=== PATIENT | female | born 1965 | race Caucasian/White ===

== ENCOUNTER 2018-01-01 18:41 | Emergency (ER) | payer OTHER ==
[~2018-01-01] VITALS: Ht 175.3 cm; Wt 86.2 kg
--- OUTSIDE RECORDS SUMMARY | ~2018-01-01 | XMS | Encounter Summary ---
Demographics + + + | Address | [address] | | | [place] [address] | + + + | Home Phone | | + + + | Preferred Language | Unknown | + + + | Marital Status | | + + + | Anglican Affiliation | Unknown | + + + | Race | Unknown | + + + | Ethnic Group | Unknown | + + + Author + + + | Author | [facility] | | | and [place]za[place] | + + + | Organization | [facility] | | | and [place]za[place] | + + + | Address | Unknown | + + + | Phone | Unavailable | + + + Support + + + + + | Name | Relationship | Address | Phone | + + + + + | Mathieu Almanza | ECON | [address] | | | | | [place] [address] | | + + + + + | Brittanie Almanza | ECON | Unknown | | + + + + + Care Team Providers + +------+ + | Care Enterprise Application Developer Name | Role | Phone | + +------+ + | Consuelo Lepe | PCP | | + +------+ + Reason for Referral Diagnostic/Screening (Routine) +--------+--------+ + + + + | Status | Reason | Specialty | Diagnoses / | Referred By | Referred To | | | | | Procedures | Contact | Contact | +--------+--------+ + + + + | Closed | | Radiology | Diagnoses | Roberth, | | | | | | Chronic | Consuelo | | | | | | sinusitis, | [address] [address] | | | | | | unspecified | [address] | | | | | | location | [place], | | | | | | Procedures | [place] | | | | | [place] | [address] | | | | | | Contrast | Phone: | | | | | | | [phone] | | | | | | | Fax: | | | | | | | [phone] | | +--------+--------+ + + + + Encounter Details +--------+ + + + + | Date | Type | Department | Care Team | Description | +--------+ + + + + | 10/16/ | Ancillary | [facility] | Consuelo Lepe | Chronic sinusitis, | | 2018 | Orders | [facility] XRAY 900 | [address] | unspecified location | | | | [address] | [facility], [place] | | | | | [place], [place] | [address] | | | | | [address] | [phone] | | | | | [phone] | | | +--------+ + + + + Social History + +-------+ +--------+------+ | Tobacco Use | Types | Packs/Day | Years | Date | | | | | Used | | + +-------+ +--------+------+ | Never Assessed | | | | | + +-------+ +--------+------+ + + + | Sex Assigned at | Date Recorded | | | | + + + | Not on file | | + + + as of this encounter Plan of Treatment Not on fileas of this encounter Results CT Sinus WO Contrast (10/22/2017 1006) + + + | Impressions | Performed At | + + + | IMPRESSION: Mild paranasal sinus mucosal thickening as detailed | [facility] | | above. Dictated by: Jonny Terry | | + + + + + + | Narrative | Performed At | + + + | EXAMINATION: CT SINUS WO CONTRAST HISTORY: chronic sinusitis | [facility] | | COMPARISON STUDY: No comparison. TECHNIQUE: 2.5 mm axial | | | slices were acquired through the sinuses | | | without contrast. Multiplanar reconstruction was performed. | | | DOSE REPORT: CTDIvol: 23.3 mGy. DLP: 283 mGy-cm. Automated | | | exposure control was utilized. FINDINGS: Olfactory fossa: Keros | | | II Frontal ethmoid sinus: The frontal recess bilateral | | | demonstrate partial opacification on the right related to mucosal | | | thickening.. The frontal sinuses demonstrate minimal mucosal | | | thickening at the base of the right frontal sinus. The ethmoid | | | sinuses are clear. Maxillary ethmoid sinus: The osteal meatal | | | complexes are patent. The maxillary sinuses demonstrate mild mucosal | | | thickening at the base of the left maxillary. The bony septum is | | | midline. The turbinates appear within normal configuration. | | | Sphenoid ethmoid sinus: The sphenoidal ethmoidal ostia demonstrate no | | | mucosal thickening in the region of the ostia.. The sphenoid sinuses | | | are clear. Mastoid air cells visualized are clear. Visualized | | | orbits are unremarkable. Visualized brain parenchyma is | | | unremarkable. Temporomandibular joints are unremarkable. Visualized | | | parotid glands are unremarkable. | | + + + + + | Procedure Note | + + | Migue, Rad Results In - 10/22/2017 1137 PDT EXAMINATION:CT SINUS WO | | CONTRASTHISTORY:chronic sinusitisCOMPARISON STUDY:No comparison.TECHNIQUE:2.5 mm axial | | slices were acquired through the sinuses without contrast. Multiplanar reconstruction | | was performed.DOSE REPORT:CTDIvol: 23.3 mGy. DLP: 283 mGy-cm. Automated exposure | | control was utilized.FINDINGS:Olfactory fossa: Keros IIFrontal ethmoid sinus:The frontal | | recess bilateral demonstrate partial opacification on the right related to mucosal | | thickening..The frontal sinuses demonstrate minimal mucosal thickening at the base of | | the right frontal sinus.The ethmoid sinuses are clear.Maxillary ethmoid sinus:The osteal | | meatal complexes are patent.The maxillary sinuses demonstrate mild mucosal thickening | | at the base of the left maxillary.The bony septum is midline.The turbinates appear | | within normal configuration.Sphenoid ethmoid sinus:The sphenoidal ethmoidal ostia | | demonstrate no mucosal thickening in the region of the ostia..The sphenoid sinuses are | | clear.Mastoid air cells visualized are clear.Visualized orbits are | | unremarkable.Visualized brain parenchyma is unremarkable.Temporomandibular joints are | | unremarkable.Visualized parotid glands are unremarkable.IMPRESSION: IMPRESSION:Mild | | paranasal sinus mucosal thickening as detailed above.Dictated by: Jonny | | [place] | | | |Frontal ethmoid sinus: | |The frontal recess bilateral demonstrate partial opacification on the right related to muco ricky thickening.. | |The frontal sinuses demonstrate minimal mucosal thickening at the base of the right frontal sinus. | |The ethmoid sinuses are clear. | | | |Maxillary ethmoid sinus: | |The osteal meatal complexes are patent. | |The maxillary sinuses demonstrate mild mucosal thickening at the base of the left maxillary . | | | |The bony septum is midline. | |The turbinates appear within normal configuration. | | | |Sphenoid ethmoid sinus: | |The sphenoidal ethmoidal ostia demonstrate no mucosal thickening in the region of the ostia .. | |The sphenoid sinuses are clear. | | | | | |Mastoid air cells visualized are clear. | |Visualized orbits are unremarkable. | |Visualized brain parenchyma is unremarkable. | |Temporomandibular joints are unremarkable. | |Visualized parotid glands are unremarkable. | | | |IMPRESSION: | |IMPRESSION: | |Mild paranasal sinus mucosal thickening as detailed above. | | | |Dictated by: Jonny Terry | | | | | + + + +---------+ + + | Performing | Address | City/State/Zipcode | Phone Number | | Organization | | | | + +---------+ + + | [facility] | | | | + +---------+ + + in this encounter Visit Diagnoses + + | Diagnosis | + + | Chronic sinusitis, unspecified location | + +"
--- OUTSIDE RECORDS SUMMARY | ~2018-01-01 | XMS | Encounter Summary ---
Demographics + + + | Address | [address] | | | [place] [address] | + + + | Home Phone | | + + + | Preferred Language | Unknown | + + + | Marital Status | | + + + | Druze Affiliation | Unknown | + + + | Race | Unknown | + + + | Ethnic Group | Unknown | + + + Author + + + | Author | [facility] | | | and [place] | + + + | Organization | [facility] | | | and [place] | + + + | Address | Unknown | + + + | Phone | Unavailable | + + + Support + + + + + | Name | Relationship | Address | Phone | + + + + + | Mathieu Almanza | ECON | [address] | | | | | [place] [address] | | + + + + + | Brittanie Almanza | ECON | Unknown | | + + + + + Care Team Providers + +------+ + | Care Marketing Assistant Name | Role | Phone | + [...] | | | [place] | [address] | | | | | | Contrast | Phone: | | | | | | | [phone] | | | | | | | Fax: | | | | | | | [phone] | | +--------+--------+ + + + + Encounter Details +--------+ + + + + | Date | Type | Department | Care Team | Description | +--------+ + + + + | 10/16/ | Ancillary | [facility] | Consuelo Lepe | Chronic sinusitis, | | 2018 | Orders | [facility] XRAY [address] | [address] | unspecified location | | | | [address] | [facility], [place] | | | | | [place], [place] | [address] | | | | | [address] | [phone] | | | | | [phone] | | | +--------+ + + + [...]
--- OUTSIDE RECORDS SUMMARY | ~2018-01-01 | XMS | Encounter Summary ---
Demographics + + + | Address | [address] | | | [place] [address] | + + + | Home Phone | | + + + | Preferred Language | Unknown | + + + | Marital Status | | + + + | Yazidism Affiliation | Unknown | + + + | Race | Unknown | + + + | Ethnic Group | Unknown | + + + Author + + + | Author | [facility] | | | and [place]za[place] | + + + | Organization | [facility] | | | and [place] | + + + | Address | Unknown | + + + | Phone | Unavailable | + + + Support + + + + + | Name | Relationship | Address | Phone | + + + + + | Mathieu Almanza | ECON | [address] | | | | | [place] [address] | | + + + + + | Brittanie Almanza | ECON | Unknown | | + + + + + Care Team Providers + +------+ + | Care Travelift Operator Name | Role | Phone | + +------+ + | Consuelo Lepe | PCP | | + +------+ + Encounter Details +--------+ + + + + | Date | Type | Department | Care Team | Description | +--------+ + + + + | 10/22/ | Ancillary | [facility] | Consuelo Lepe | 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[facility] XRAY [address] | [address] | tunnel syndrome | | | | [address] | [facility] [place] | | | | | [place] | [address] | | | | | [address] | [phone] | | | | | [phone] | | | +--------+ + + + [...] Not on fileas of this encounter Results XR Hand Left 3 + Vw (10/22/2017 1012) + + + | Impressions | Performed At | + + + | IMPRESSION: 1. No acute finding. 2. No distinct joint degenerative | [facility] | | changes evident. Dictated by: Jonny Terry Electronically | | | Signed by: Jonny Terry on 10/22/2017 11:00 AM | | + + + + + + | Narrative | Performed At | + + + | EXAMINATION: XR HAND LEFT 3 + VW; XR HAND RIGHT 3 + VW HISTORY: | [facility] | | Bilateral carpal tunnel syndrome COMPARISON STUDY: None | | | FINDINGS: Images in multiple views showed no significant soft tissue | | | or bony abnormality. If concern for acute fracture remains clinically | | | follow-up images in 10 to 14 days recommended. The joint spaces are | | | maintained. No ulnar variance. No acute bone finding | | | identified. No abnormal soft tissue calcifications.. | | + + + + + | Procedure Note | + + | Migue, Rad Results In - 10/22/2017 1103 PDT EXAMINATION:XR HAND LEFT 3 + VW; XR HAND | | RIGHT 3 + VWHISTORY:Bilateral carpal tunnel syndromeCOMPARISON STUDY:NoneFINDINGS:Images | | in multiple views showed no significant soft tissue or bony abnormality.If concern for | | acute fracture remains clinically follow-up images in 10 to 14 days recommended. The | | joint spaces are maintained. No ulnar variance. No acute bone finding identified. No | | abnormal soft tissue calcifications..IMPRESSION: IMPRESSION:1. No acute finding.2. No | | distinct joint degenerative changes evident.Dictated by: Jonny TerryElectronically | | Signed by: Jonny Terry on 10/22/2017 11:00 AM | | | |FINDINGS: | |Images in multiple views showed no significant soft tissue or bony abnormality. | |If concern for acute fracture remains clinically follow-up images in 10 to 14 days recommen ded. The joint spaces are maintained. No ulnar variance. No acute bone finding identified. No abnormal soft tissue calcifications.. | | | |IMPRESSION: | |IMPRESSION: | |1. No acute finding. | |2. No distinct joint degenerative changes evident. | | | |Dictated by: Jonny Terry | | | | | + + + +---------+ + + | Performing | Address | City/State/Zipcode | Phone Number | | Organization | | | | + +---------+ + + | [facility] | | | | + +---------+ + + XR Hand Right 3 + Vw (10/22/2017 1012) + + + | Impressions | Performed At | + + + | IMPRESSION: 1. No acute finding. 2. No distinct joint degenerative | [facility] | | changes evident. Dictated by: Jonny Terry Electronically | | | Signed by: Jonny Terry on 10/22/2017 11:00 AM | | + + + + + + | Narrative | Performed At | + + + | EXAMINATION: XR HAND LEFT 3 + VW; XR HAND RIGHT 3 + VW HISTORY: | [facility] | | Bilateral carpal tunnel syndrome COMPARISON STUDY: None | | | FINDINGS: Images in multiple views showed no significant soft tissue | | | or bony abnormality. If concern for acute fracture remains clinically | | | follow-up images in 10 to 14 days recommended. The joint spaces are | | | maintained. No ulnar variance. No acute bone finding | | | identified. No abnormal soft tissue calcifications.. | | + + + + + | Procedure Note | + + | Migue, Rad Results In - 10/22/2017 1103 PDT EXAMINATION:XR HAND LEFT 3 + VW; XR HAND | | RIGHT 3 + VWHISTORY:Bilateral carpal tunnel syndromeCOMPARISON STUDY:NoneFINDINGS:Images | | in multiple views showed no significant soft tissue or bony abnormality.If concern for | | acute fracture remains clinically follow-up images in 10 to 14 days recommended. The | | joint spaces are maintained. No ulnar variance. No acute bone finding identified. No | | abnormal soft tissue calcifications..IMPRESSION: IMPRESSION:1. No acute finding.2. No | | distinct joint degenerative changes evident.Dictated by: Jonny TerryElectronically | | Signed by: Jonny Terry on 10/22/2017 11:00 AM | | | |FINDINGS: | |Images in multiple views showed no significant soft tissue or bony abnormality. | |If concern for acute fracture remains clinically follow-up images in 10 to 14 days recommen ded. The joint spaces are maintained. No ulnar variance. No acute bone finding identified. No abnormal soft tissue calcifications.. | | | |IMPRESSION: | |IMPRESSION: | |1. No acute finding. | |2. No distinct joint degenerative changes evident. | | | |Dictated by: Jonny Terry | | | | | + + + +---------+ + + | Performing | Address | City/State/Zipcode | Phone Number | | Organization | | | | + +---------+ + + | [facility] | | | | + +---------+ + + in this encounter Visit Diagnoses + + | Diagnosis | + + | Bilateral carpal tunnel syndrome | + + | Carpal tunnel syndrome | + +"
--- OUTSIDE RECORDS SUMMARY | ~2018-01-01 | XMS | Encounter Summary ---
Demographics + + + | Address | [address] | | | [place] [address] | + + + | Home Phone | | + + + | Preferred Language | Unknown | + + + | Marital Status | | + + + | Buddhist Affiliation | Unknown | + + + | Race | Unknown | + + + | Ethnic Group | Unknown | + + + Author + + + | Author | [facility] | | | and Rezaana | + + + | Organization | [facility] | | | and Rezaana | + + + | Address | Unknown | + + + | Phone | Unavailable | + + + Support + + + + + | Name | Relationship | Address | Phone | + + + + + | Mathieu Almanza | ECON | [address] | | | | | [place] [address] | | + + + + + | Brittanie Amlanza | ECON | Unknown | | + + + + + Care Team Providers + +------+ + | Care Painter Ski Edge Name | Role | Phone | + +------+ + | Consuelo Lepe | PCP | | + +------+ + Reason for Visit +--------+ + | Reason | Comments | +--------+ + | Pain | | +--------+ + Encounter Details +--------+ + + + + | Date | Type | Department | Care Team | Description | +--------+ + + + + | 12/26/ | Emergency | [facility] | Zahira Bland, | Generalized pain | | 2018 | | [facility] | [facility] [address] | (Primary Dx) | | | | CENTER [address] | [place] | | | | | [place] | [address] | | | | | [address] | | | | | | [phone] | | | +--------+ + + + + Social History + + + +--------+------+ | Tobacco Use | Types | Packs/Day | Years | Date | | | | | Used | | + + + +--------+------+ | Current Every Day | Cigarettes | 0.5 | 40 | | | Smoker | | | | | + + + +--------+------+ + +---+---+---+ | Smokeless Tobacco: | | | | | Never Used | | | | + +---+---+---+ + + | Tobacco Cessation: Ready to Quit: No; Counseling Given: No | + + + + +---------+ + | Alcohol Use | Drinks/We | oz/Week | Comments | | | ek | | | + + +---------+ + | No | | | | + + +---------+ + + + + | Sex Assigned at | Date Recorded | | | | + + + | Not on file | | + + + as of this encounter Last Filed Vital Signs + + + + | Vital Sign | Reading | Time Taken | + + + + | Blood Pressure | 107/72 | 12/26/20171454 PDT | + + + + | Pulse | 94 | 12/26/20171454 PDT | + + + + | Temperature | 37 C (98.6 F) | 12/26/20171454 PDT | + + + + | Respiratory Rate | 22 | 12/26/20171454 PDT | + + + + | Oxygen Saturation | 98% | 12/26/20171454 PDT | + + + + | Inhaled Oxygen | - | - | | Concentration | | | + + + + | Weight | 81.6 kg (180 lb) | 12/26/20171454 PDT | + + + + | Height | 170.2 cm (5' 7") | 12/26/20171454 PDT | + + + + | Body Mass Index | 28.19 | 12/26/20171454 PDT | + + + + in this encounter Discharge Instructions The following attachments cannot be sent through Care Everywhere.Pain Response,Understand ing (Estonian)in this encounter Medications at Time of Discharge + + +--------+---------+ + + | Medication | Sig. | Disp. | Refills | Start | End Date | | | | | | Date | | + + +--------+---------+ + + | | Take 1 tablet by | | | | | | acetaminophen-codein | mouth every 4 hours | | | | | | e (TYLENOL #3) | as needed for Pain. | | | | | | 300-30 mg per tablet | | | | | | + + +--------+---------+ + + | dexamethasone | Take 2 mg by mouth | | | | | | (DECADRON) 2 MG | Daily. | | | | | | tablet | | | | | | + + +--------+---------+ + + | | Take 1 tablet by | | | | | | sulfamethoxazole-tri | mouth 2 times daily. | | | | | | methoprim (BACTRIM | | | | | | | DS) 800-160 mg per | | | | | | | tablet | | | | | | + + +--------+---------+ + + | ketorolac | Take 1 tablet by | 20 | 0 | 12/27/19 | | | (TORADOL) 10 MG | mouth every 6 hours | tablet | | 18 | 8 | | tablet | as needed for Pain | | | | | | | for up to 5 days. | | | | | + + +--------+---------+ + + as of this encounter Plan of Treatment Not on fileas of this encounter Procedures + +--------+ + + + | Procedure Name | Priori | Date/Time | Associated Diagnosis | Comments | | | ty | | | | + +--------+ + + + | DIFFERENTIAL, MANUAL | Routin | 12/26/2017 | | Results for this | | | e | 1630 PDT | | procedure are in the | | | | | | results section. | + +--------+ + + + | CBC WITH | STAT | 12/26/2017 | | Results for this | | DIFFERENTIAL | | 1630 PDT | | procedure are in the | | | | | | results section. | + +--------+ + + + | LACTIC ACID | STAT | 12/26/2017 | | Results for this | | | | 1630 PDT | | procedure are in the | | | | | | results section. | + +--------+ + + + | COMPREHENSIVE | STAT | 12/26/2017 | | Results for this | | METABOLIC PANEL | | 1630 PDT | | procedure are in the | | | | | | results section. | + +--------+ + + + | URINALYSIS WITH | STAT | 12/26/2017 | | Results for this | | MICROSCOPIC WITH | | 1542 PDT | | procedure are in the | | CULTURE IF INDICATED | | | | results section. | + +--------+ + + + in this encounter Results Differential, Manual (12/26/2017 1630) + + + + + | Component | Value | Ref Range | Performed At | + + + + + | % Seg Neutrophils | 51.0 | 42.0 - 76.0 % | [facility] | | | [facility] | + + + + + | % Lymphocytes | 31.0 | 20.0 - 40.0 % | [facility] | + + + + + | % Monocytes | 10.0 | 3.0 - 13.0 % | [facility] | + + + + + | % Eosinophils | 7.0 | 0.0 - 7.0 % | [facility] | | | | [facility] | + + + + + | % Basophils | 1.0 | 0.0 - 2.0 % | [facility] | | | | | [facility] | + + + + + | Absolute Seg | 4.74 | 2.50 - 8.50 K/uL | [facility] | | Neutrophils | | | [facility]OSPITAL | | | | | LAB[facility]ATORY | + + + + + | Absolute Lymphocytes | 2.88 | 1.00 - 3.80 K/uL | [facility] | | | | | [facility] | + + + + + | Absolute Monocytes | 0.93 (H) | 0.00 - 0.80 K/uL | [facility] | | | | | [facility] | + + + + + | Absolute Eosinophils | 0.65 | 0.00 - 0.70 K/uL | [facility] | | | | | [facility] | + + + + + | Absolute Basophils | 0.09 | 0.00 - 0.20 K/uL | [facility] | | | | | [facility] | + + + + + | Total Counted | 100 | | [facility] | [facility] | | | [facility] | + + + + + | RBC MORPHOLOGY | Normal | | [facility] | | | | | [facility] | + + + + + | WBC MORPHOLOGY | Normal | | [facility] | | | | | [facility] | + + + + + | Platelet Estimate | Adequate | Adequate | [facility] | [facility] | | | | | [facility] | + + + + + + + | Specimen | + + | Blood | + + + + + + + | Performing | Address | City/State/Zipcode | Phone Number | | Organization | | | | + + + + + | [facility] | [address] | [place] [address] | [phone] | | [facility] | | | | + + + + + Lactic Acid (12/26/2017 1630) + +-------+ + + | Component | Value | Ref Range | Performed At | + +-------+ + + | LACTATE | 0.9 | 0.4 - 2.1 mmol/L | [facility] | | | | | [facility] | + +-------+ + + + + | Specimen | + + | Blood | + + + + + + + | Performing | Address | City/State/Zipcode | Phone Number | | Organization | | | | + + + + + | [facility] | [address] | [place] [address] | [phone] | | [facility] | | | | + + + + + Comprehensive Metabolic Panel (12/26/2017 1630) + + + + + | Component | Value | Ref Range | Performed At | + + + + + | NA | 137 | 132 - 143 mmol/L | [facility] | | | | | [facility] | + + + + + | K | 4.0 | 3.3 - 4.9 mmol/L | [facility] | [facility] | | | [facility] | + + + + + | CL | 103 | 95 - 108 mmol/L | [facility] | [facility] | | | | | [facility] | + + + + + | CO2 | 30 | 23 - 34 mmol/L | [facility] | | | | | [facility] | + + + + + | ANION GAP | 4 (L) | 7 - 16 mmol/L | [facility] | | | | | [facility] | + + + + + | GLUCOSE | 94 | 70 - 110 mg/dL | [facility] | [facility] | | [facility] | + + + + + | BUN | 11 | 5 - 26 mg/dL | [facility] | [facility] | | | | | [facility] | + + + + + | Creatinine, | 0.96 | 0.60 - 1.30 mg/dL | [facility] | | Serum/Plasma | | | [facility] | | | | | LAB[facility]ATORY | + + + + + | eGFR if not | >60Comment: GLOMERULAR | >=60 mL/min/1.73m2 | [facility] | | BRUNEIAN | FILTRATION | | HOSPITAL | | | RATE,ESTIMATED mL/min | | LABORATORY | | | /1.85i3Smbp than 60 | | | | | Chronic kidney | | | | | disease,if found over a | | | | | 3-month period.Less than | | | | | 15 Kidney | | | | | failureFor | | | | | Americans,multiply the | | | | | calculated GFR by 1.21. | | | | | | | | + + + + + | CALCIUM | 8.7 | 8.3 - 10.0 mg/dL | [facility] | [facility] | | | | | [facility] | + + + + + | ALBUMIN | 3.3 | 3.0 - 4.5 g/dL | [facility] | [facility] | | | | | [facility] | + + + + + | Bilirubin Total | 0.2 | 0.0 - 1.2 mg/dL | [facility] | | [facility] | | | | | [facility] | + + + + + | Total protein | 6.7 | 6.6 - 8.5 g/dL | [facility] | | | | | [facility] | + + + + + | AST | 16 | 0 - 38 U/L | [facility] | [facility] | | | | | [facility] | + + + + + | ALT | 29 | 14 - 59 U/L | [facility] | | | | | [facility] | + + + + + | ALK PHOS | 43 (L) | 46 - 116 U/L | [facility] | | | | | [facility] | + + + + + | GLOBULIN | 3.4 | g/dL | [facility] | [facility] | | | | | [facility] | + + + + + | Albumin/Globulin | 1.0 | | [facility] | | ratio | | | [facility] | | | | | [facility] | + + + + + | BUN/CREA | 11.5 | 7.0 - 24.0 | [facility] | | | [facility] | | | | | [facility] | + + + + + + + | Specimen | + + | Blood | + + + + + + + | Performing | Address | City/State/Zipcode | Phone Number | | Organization | | | | + + + + + | [facility] | [address] | [place] [address] | [phone] | | [facility] | | | | + + + + + CBC with Differential (12/26/2017 1630) + + + + + | Component | Value | Ref Range | Performed At | + + + + + | WBC | 9.3 | 4.3 - 10.4 K/uL | [facility] | | | | | [facility] | + + + + + | RBC | 4.04 (L) | 4.12 - 5.30 M/uL | [facility] | | | | | [facility] | + + + + + | Hgb | 13.0 | 12.4 - 15.7 g/dL | [facility] | | | | | [facility] | + + + + + | Hct | 38.7 | 37.7 - 47.0 % | [facility] | | | | | [facility] | + + + + + | MCV | 95.8 | 82.0 - 97.0 fL | [facility] | | | | | [facility] | + + + + + | MCH | 32.2 | 27.1 - 32.3 pg | [facility] | | | | | [facility] | + + + + + | MCHC | 33.6 | 32.0 - 36.9 g/dL | [facility] | [facility] | + + + + + | RDW-CV | 12.4 | 0.0 - 17.0 % | [facility] | | | | | [facility] | + + + + + | Platelet Count | 241 | 150 - 450 K/uL | [facility] | [facility] | [facility] | + + + + + | MPV | 10.2 | 9.4 - 12.3 fL | [facility] | [facility] | | | | | [facility] | + + + + + | nRBC | 0 | 0 - 0 per 100 WBC's | [facility] | | | | | [facility] | + + + + + | NRBC ABS | 0.00 | 0.00 - 0.01 K/UL | [facility] | [facility] | | | | | [facility] | + + + + + + + | Specimen | + + | Blood | + + + + + + + | Performing | Address | City/State/Zipcode | Phone Number | | Organization | | | | + + + + + | [facility] | [address] | [place] [address] | [phone] | | [facility] | | | | + + + + + Urinalysis with Microscopic with Culture if Indicated (12/26/2017 1542) + + + + + | Component | Value | Ref Range | Performed At | + + + + + | COLOR | Yellow | Pale Yellow, Yellow | [facility] | | | | | [facility] | + + + + + | CLARITY | Clear | Clear | [facility] | [facility] | | | | | [facility] | + + + + + | PH UA | 8.0 (H) | 5.0 - 7.0 | [facility] | | | | | [facility] | + + + + + | Specific [place] | 1.010 | 1.003 - 1.030 | [facility] | | [facility] | | | | | [facility] | + + + + + | PROTEIN UA | Negative | Negative | [facility] | | | | | [facility] | + + + + + | BLOOD UA | Negative | Negative | [facility] | | | [facility] | [facility] | | | [facility] | + + + + + | GLUCOSE UA | Normal | Normal | [facility] | | | | [facility] | | | | | [facility] | + + + + + | KETONES UA | Negative | Negative | [facility] | [facility] | [facility] | | | [facility] | + + + + + | BILIRUBIN UA | Negative | Negative | [facility] | [facility] | | | | | [facility] | + + + + + | NITRITE UA | Negative | Negative | [facility] | [facility] | | | [facility] | + + + + + | LEUKOCYTES ESTERASE | 25 zahraa/uL (A) | Negative | [facility] | | U[facility] | | | [facility] | | | | | [facility] | + + + + + | UROBILINOGEN UA | Normal | 0-1.0 mg/dL | [facility] | | | | [facility] | | | | | [facility] | + + + + + | WBC UA | 0-2 | <=5 /HPF | [facility] | [facility] | [facility] | | | | | [facility] | + + + + + | RBC UA | None Seen | <=5 /HPF | [facility] | [facility] | | | | | [facility] | + + + + + | SQUAMOUS EPITHELIAL | Few (A) | None Seen /LPF | [facility] | | [facility] | | | | | [facility] | + + + + + | BACTERIA UA | None Seen | None Seen /HPF | [facility] | [facility] | [facility] | | | | | [facility] | + + + + + | URINE COMMENT | Urine Culture Not | | [facility] | | | Indicated | | [facility] | | | | | [facility] | + + + + + + + | Specimen | + + | Urine - Urine, Clean | | Catch | + + + + + + + | Performing | Address | City/State/Zipcode | Phone Number | | Organization | | | | + + + + + | [facility] | [address] | [place] [address] | [phone] | | [facility] | | | | + + + + + in this encounter Visit Diagnoses + + | Diagnosis | + + | Generalized pain - Primary | + + Administered Medications + +--------+ +-------+------+------+ | Medication Order | MAR | Action | Dose | Rate | Site | | | Action | Date | | | | + +--------+ +-------+------+------+ | ketorolac (TORADOL) injection | Given | 12/26/2017 | 30 mg | | | | 30 mg 30 mg, Intravenous, ONCE, | | 16:33 | | | | | Marybeth 12/26/17 at 1645, For 1 dose | | PDT | | | | + +--------+ +-------+------+------+ + +---+ | | | + +---+ | LORazepam (ATIVAN) 2 mg/mL | | | injection Starting Marybeth 12/26/17 at | | | 1746, For 1 dose, CHAYO FRASER | | | M: anahi override | | + +---+ | | | + +---+ + +-------+ +------+---+---+ | LORazepam (ATIVAN) injection 1 | Given | 12/26/2017 | 1 mg | | | | mg 1 mg, Intravenous, ONCE, Marybeth | | 17:50 | | | | | 12/26/17 at 1815, For 1 dose | | PDT | | | | + +-------+ +------+---+---+ +---+---+ | | | +---+---+ in this encounter
--- OUTSIDE RECORDS SUMMARY | ~2018-01-01 | XMS | Encounter Summary ---
Demographics + + + | Address | [address] | | | [place] [address] | + + + | Home Phone | | + + + | Preferred Language | Unknown | + + + | Marital Status | | + + + | Uatsdin Affiliation | Unknown | + + + | Race | Unknown | + + + | Ethnic Group | Unknown | + + + Author + + + | Author | [facility] | | | and Rezaana | + + + | Organization | [facility] | | | and [place]za[place] | + + + | Address | Unknown | + + + | Phone | Unavailable | + + + Support + + + + + | Name | Relationship | Address | Phone | + + + + + | Mathieu Almanza | ECON | [address] | | | | | [place] [address] | | + + + + + | Brittanie Almanza | ECON | Unknown | | + + + + + Care Team Providers + +------+ + | [facility] Pharm[facility] Technician Name | Role | Phone | + +------+ + | Consuelo Lepe | PCP | | + +------+ + Encounter Details +--------+ + + + + | Date | Type | Department | Care Team | Description | +--------+ + + + + | 12/30/ | Ancillary | [facility] | Consuelo Lepe | Generalized | | 2018 | Orders | [facility] [address] | [address] | abdominal pain | | | | [address] | [facility], [place] | | | | | [place] | [address] | | | | | [address] | [phone] | | | | | [phone] | | | +--------+ + + + [...] | | | + +---+---+---+ + + +---------+ + | Alcohol Use [...] on fileas of this encounter Results XR Abd Supine and Upright w 1 Vw Chest (12/30/2017 3473) + + + | Impressions | Performed At | + + + | IMPRESSION: No acute finding identified. Dictated by: Jonny Varner [facility] | | [place] | | | PM | | + + + + + + | Narrative | Performed At | + + + | EXAMINATION: XR ABDOMEN SUPINE AND UPRIGHT WITH 1 VW CHEST | [facility] | | HISTORY: Abdominal Pain COMPARISON STUDY: CT abdomen pelvis | | | 12/11/2015. FINDINGS: Chest: The lungs are clear. Heart size | | | is normal. No pleural effusion, or acute bone finding is | | | demonstrated. . Abdomen: The bowel gas pattern appears within | | | normal limits. No abnormal soft tissue calcifications are | | | seen. The visualized bony structures appear within normal limits. | | | Phleboliths project over the pelvic inlet. Suture material | | | projecting over the left pelvic inlet compatible with prior surgery. | | | | | + + + + + | Procedure Note | + + | Migue, Rad Results In - 12/30/2017 1415 PDT EXAMINATION:XR ABDOMEN SUPINE AND UPRIGHT | | WITH 1 VW CHESTHISTORY:Abdominal PainCOMPARISON STUDY:CT abdomen pelvis | | 12/11/2015.FINDINGS:Chest: The lungs are clear. Heart size is normal. No pleural | | effusion, or acute bone finding is demonstrated. .Abdomen: The bowel gas pattern appears | | within normal limits. No abnormal soft tissue calcifications are seen. The visualized | | bony structures appear within normal limits. Phleboliths project over the pelvic inlet. | | Suture material projecting over the left pelvic inlet compatible with prior | | surgery.IMPRESSION: IMPRESSION:No acute finding identified.Dictated by: Jonny | | [place] | |FINDINGS: | |Chest: The lungs are clear. Heart size is normal. No pleural effusion, or acute bone find ing is demonstrated. . | | | |Abdomen: The bowel gas pattern appears within normal limits. No abnormal soft tissue calci fications are seen. The visualized bony structures appear within normal limits. Phleboliths project over the pelvic inlet. Suture material projecting over the | |left pelvic inlet compatible with prior surgery. | | | |IMPRESSION: | |IMPRESSION: | |No acute finding identified. | | | |Dictated by: Jonny Terry | | | | | + + + +---------+ + + | Performing | Address | City/State/Zipcode | Phone Number | | Organization | | | | + +---------+ + + | [facility] | | | | + +---------+ + + in this encounter Visit Diagnoses + + | Diagnosis | + + | Generalized abdominal pain | + + | Abdominal pain, generalized | + +"
--- OUTSIDE RECORDS SUMMARY | ~2018-01-01 | XMS | Clinical Summary ---
Demographics + + + | Address | [address] | | | [place] [address] | + + + | Home Phone | | + + + | Preferred Language | Unknown | + + + | Marital Status | | + + + | Pentecostal Affiliation | Unknown | + + + | Race | Unknown | + + + | Ethnic Group | Unknown | + + + Author + + + | Author | [facility] | | | and [place] | + + + | Organization | [facility] | | | and [place]za[place] | + + + | Address | Unknown | + + + | Phone | Unavailable | + + + Support + + + + + | Name | Relationship | Address | Phone | + + + + + | Mathieu Almanza | ECON | [address] | | | | | [place] [address] | | + + + + + | Brittanie Almanza | ECON | Unknown | | + + + + + Care Team Providers + +------+ + | Care Maintenance Leader Name | Role | Phone | + +------+ + | Consuelo Lepe | PP | | + +------+ + Allergies + + + + + + | Active Allergy | Reactions | Severity | Noted | Comments | | | | | Date | | + + + + + + | Morphine | Nausea And Vomiting | | 12/27/19 | | | | | | 18 | | + + + + + + Current Medications + + +--------+---------+------+------+-------+ | Prescription | Sig. | Disp. | Refills | Star | End | Statu | | | | | | t | Date | s | | | | | | Date | | | + + +--------+---------+------+------+-------+ | dexamethasone | Take 2 mg by mouth | | | | | Activ | | (DECADRON) 2 MG | Daily. | | | | | e | | tablet | | | | | | | + + +--------+---------+------+------+-------+ | | Take 1 tablet by | | | | | Activ | | acetaminophen-codein | mouth every 4 hours | | | | | e | | e (TYLENOL #3) | as needed for Pain. | | | | | | | 300-30 mg per tablet | | | | | | | + + +--------+---------+------+------+-------+ | | Take 1 tablet by | | | | | Activ | | sulfamethoxazole-tri | mouth 2 times daily. | | | | | e | | methoprim (BACTRIM | | | | | | | | DS) 800-160 mg per | | | | | | | | tablet | | | | | | | + + +--------+---------+------+------+-------+ | ketorolac | Take 1 tablet by | 20 | 0 | 08/0 | 08/1 | Expir | | (TORADOL) 10 MG | mouth every 6 hours | tablet | | 9/20 | 4/20 | ed | | tablet | as needed for Pain | | | 18 | 18 | | | | for up to 5 days. | | | | | | + + +--------+---------+------+------+-------+ Active Problems Not on file Encounters +--------+ + + + + | Date | Type | Specialty | Care Team | Description | +--------+ + + + + | 12/30/ | Hospital | | Consuelo Lepe | Generalized | | 2018 | Encounter | | [facility] | abdominal pain | +--------+ + + + + | 12/30/ | Ancillary | | Consuelo Lepe | Generalized | | 2018 | Orders | | [facility] | abdominal pain | +--------+ + + + + | 12/26/ | Emergency | | Zahira Bland, | Generalized pain | | 2018 | | | MONITORING AND EVALUATION ADVISOR | (Primary Dx) | +--------+ + + + + | 10/22/ | Hospital | | Consuelo Lepe | 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[facility] | tunnel syndrome | +--------+ + + + + | 10/22/ | Hospital | | Consuelo Lepe | Chronic sinusitis, | | 2018 | Encounter | [facility] | unspecified location | +--------+ + + + + | 10/22/ | Ancillary | | Consuelo Lepe | 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[facility] | tunnel syndrome | +--------+ + + + + | 10/16/ | Ancillary | | Consuelo Lepe | Chronic sinusitis, | | 2018 | Orders | [facility] | unspecified location | +--------+ + + + + from Last 3 Months Immunizations + + + + | Name | Dates Previously Given | Next Due | + + + + | TDAP, (ADOL/ADULT) | 11/22/2015 | | + + + + Social History + [...] on file | | + + + Last Filed Vital Signs + + + [...] 12/26/20171454 PDT | + + + + Plan of Treatment + + + + + | Health Maintenance | Due Date | Last Done | Comments | + + + + + | PRIMARY CARE | | | | | OUTREACH-LOW RISK | 3 | | | | EVERY 2 YEARS | | | | + + + + + | Cervical Cancer | | | | | Screening (Pap) | 3 | | | + + + + + | Vaccine: Influenza | | | | | (#1) | 8 | | | + + + + + | Vaccine: | | 11/22/2015 | | | Dtap/Tdap/Td (2 - | 6 | | | | Td) | | | | + + + + + Procedures + +--------+ + + + | Procedure Name | Priori | Date/Time | Associated Diagnosis | Comments | | | ty | | | | + +--------+ + + + | XR ABDOMEN AP | Routin | 12/30/2017 | Generalized | Results for this | | UPRIGHT KUB AND PA | e | 1343 PDT | abdominal pain | procedure are in the | | CHEST | | | | results section. | [...] | + +--------+ + + + | XR HAND LEFT 3 + VW | Routin | 10/22/2017 | Bilateral carpal | Results for this | | | e | 1012 PDT | tunnel syndrome | procedure are in the | | | | | | results section. | + +--------+ + + + | XR HAND RIGHT 3 + VW | Routin | 10/22/2017 | Bilateral carpal | Results for this | | | e | 1012 PDT | tunnel syndrome | procedure are in the | | | | | | results section. | + +--------+ + + + | CT SINUS WO CONTRAST | Routin | 10/22/2017 | Chronic sinusitis, | Results for this | | | e | 1006 PDT | unspecified | procedure are in the | | | | | location | results section. | + +--------+ + + + from Last 3 Months Results XR Abd Supine and Upright w 1 Vw Chest (12/30/2017 1343) + + + | Impressions | Performed At | + + + | IMPRESSION: No acute finding identified. Dictated by: Jonny | [facility] | | [place] | | [...] | | | + +---------+ + + Differential, Manual (12/26/2017 1630) + + + + + | Component | Value | Ref Range | Performed At | + + + + + | % Seg Neutrophils | 51.0 | 42.0 - 76.0 % | [facility] | | | [...] + + + + + | [facility] | [address] | [place] [address] | [phone] | | [facility]PITAL [facility]ATORY | | | [...] | 4.12 - 5.30 M/uL | [facility] | | | | [...] + + + + + | [facility] | [address] | [place] [address] | [phone] | | HOSPITAL LAB[facility]ATORY | | | [...] + + + + + | [facility] | [address] | [place] [address] | [phone] | | HOSPITAL LAB[facility] | | | | + + + + + Comprehensive Metabolic Panel (12/26/2017 1630) + + + + + | Component | Value | Ref Range | Performed At | + + + + + | NA | 137 | 132 - 143 mmol/L | [facility] | | | | | [facility] | | | | | LABORATORY | + + + + + | K | 4.0 | 3.3 - 4.9 mmol/L | [facility] | | | | | [facility] | [...] | 70 - 110 mg/dL | [facility] | | | | | [facility] | | | | | LABORATORY | + + + + + | BUN | 11 | 5 - 26 mg/dL | [facility] | | | [...] >=60 mL/min/1.73m2 | [facility] | | [place] | FILTRATION | | HOSPITAL | | | RATE,ESTIMATED mL/min | | LABORATORY | | | /1.87c7Kmsq than 60 | | | | | [...] | 8.3 - 10.0 mg/dL | [facility] | | | [...] | Albumin/Globulin | 1.0 | | [facility] | | ratio | | | HOSPITAL [...] + + + + + | [facility] | [address] | [place] [address] | [phone] | | HOSPITAL LAB[facility]ATORY | | | [...] + + + + + | Specific [place] | 1.010 | 1.003 - 1.030 | [...] + + + + + | [facility] | [address] | [place] [address] | [phone] | | HOSPITAL LAB[facility]ORY | | | | + + + + + XR Hand Right 3 + [...] | + +---------+ + + XR Hand Left 3 + Vw (10/22/20172) + + + | Impressions | Performed [...] | | | + +---------+ + + CT Sinus WO Contrast (10/22/2017 1006) + [...] | | | + +---------+ + + from Last 3 Months Insurance +-------+--------+ +------+ + + | Payer | Benefi | Subscriber | Type | Phone | Address | | | t Plan | ID | | | | | | / | | | | | | | Group | | | | | +-------+--------+ +------+ + + | MODA | MODA | [id number] | PPO | [phone] [address] [address] | | | [place] | | | [phone] | [place] [address] | | | TY PPO | | | | | +-------+--------+ +------+ + + + +--------+ +--------+ + + | Guarantor Name | Accoun | Relation to | Date | Phone | Billing Address | | | t Type | Patient | of | | | | | | | | | | + +--------+ +--------+ + + | ROBERT ALMANZA | Person | Self [birth year] Home: | [address] [place] | | [place] | al/Fam | | 1965 | [phone] | [place] [address] | | | jing | | [phone] | | + +--------+ +--------+ + +
--- OUTSIDE RECORDS SUMMARY | ~2018-01-01 | XMS | Encounter Summary ---
Demographics + + + | Address | [address] | | | [place] [address] | + + + | Home Phone | | + + + | Preferred Language | Unknown | + + + | Marital Status | | + + + | Alevism Affiliation | Unknown | + + + | Race | Unknown | + + + | Ethnic Group | Unknown | + + + Author + + + | Author | [facility] | | | and Rezaana | + + + | Organization | [facility] | | | and [...] | | | | | [place] [address] | | + + + + + | Brittanie Almanza | ECON | Unknown | | + + + + + Care Team Providers + +------+ + | Care Race And Sports Book Writer Name | Role | Phone | + +------+ + | Consuelo Lepe | PCP | | + +------+ + Encounter Details +--------+ + + + + | Date | Type | Department | Care Team | Description | +--------+ + + + + | 10/22/ | Ancillary | [facility] | Consuelo Lepe | 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[facility] XRAY 900 | CON[facility] Gomes [address] | tunnel syndrome | | | | [address] | [facility], [place] | | | | | [place] | [address] | | | | | [address] | [phone] | | | | | [phone] | | | +--------+ + + + [...]
--- OUTSIDE RECORDS SUMMARY | ~2018-01-01 | XMS | Encounter Summary ---
Demographics + + + | Address | [address] | | | [place] [address] | + + + | Home Phone | | + + + | Preferred Language | Unknown | + + + | Marital Status | | + + + | Jewish Affiliation | Unknown | + + + | Race | Unknown | + + + | Ethnic Group | Unknown | + + + Author + + + | Author | [facility] | | | and Rezaana | + + + | Organization | [facility] | | | and [place] | + + + | Address | Unknown | + + + | Phone | Unavailable | + + + Support + + + + + | Name | Relationship | Address | Phone | + + + + + | Mathieu Almanza | ECON | [address] | | | | | [place] [address] | | + + + + + | Brittanie Almanza | ECON | Unknown | | + + + + + Care Team Providers + +------+ + | Care Material Handling Warehouse Supervisor Name | Role | Phone | + +------+ + | Gina Barksdale DO | PCP | | + +------+ + [...] | | | | unspecified | 2010 | | | | | | location | [place], | | | | | | Procedures | [place] | | | | | | [place]us [place] | [address] | | | | | | Contrast | Phone: | | | | | | | [phone] | | | | | | | Fax: | | | | | | | [phone] | | +--------+--------+ + + + + Diagnostic/Screening (Routine) +--------+--------+ + + + + [...] | | | CT Sinus [place] | [address] | | | | | | Contrast | Phone: | | | | | | | [phone] | | | | | | | Fax: | | | | | | | [phone] | | +--------+--------+ + + + + Reason for Visit Diagnostic/Screening (Routine) +--------+--------+ + + + + [...] | | | CT Sinus [place] | [address] | | | | | | Contrast | Phone: | | | | | | | [phone] | | | | | | | Fax: | | | | | | | [phone] | | +--------+--------+ + + + + Encounter Details +--------+ + + + + | Date | Type | Department | Care Team | Description | +--------+ + + + + | 10/22/ | Hospital | [facility] | Consuelo Lepe | Chronic sinusitis, | | 2017 | Encounter | [facility] [address] | [facility] Gomes [address] | unspecified location | | | | [address] | [place], [place] | | | | | [place], [place] | [address] | | | | | [address] | [phone] | | | | | [phone] | | | +--------+ + + + [...] + + + in this encounter Results CT Sinus WO Contrast [...]
--- OUTSIDE RECORDS SUMMARY | ~2018-01-01 | XMS | Encounter Summary ---
Demographics + + + | Address | [address] | | | [place] [address] | + + + | Home Phone | | + + + | Preferred Language | Unknown | + + + | Marital Status | | + + + | Quaker Affiliation | Unknown | + + + | Race | Unknown | + + + | Ethnic Group | Unknown | + + + Author + + + | Author | [facility] | | | and [place]za[place] | + + + | Organization | [facility] | | | and [place] | + + + | Address | Unknown | + + + | Phone | Unavailable | + + + Support + + + + + | Name | Relationship | Address | Phone | + + + + + | Mathieu Almanza | ECON | [address] | | | | | [place] [address] | | + + + + + | Brittanie Almanza | ECON | Unknown | | + + + + + Care Team Providers + +------+ + | Care Armature Winder Repair Helper Name | Role | Phone | + +------+ + | Gina Barksdale DO | PCP | | + +------+ + Encounter Details +--------+ + + + + | Date | Type | Department | Care Team | Description | +--------+ + + + + | 10/22/ | Hospital | [facility] | Consuelo Lepe | 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HOSPITAL XRAY 900 | [address] | tunnel syndrome | | | | [address] | [facility], [place] | | | | | [place], [place] | [address] | | | | | [address] | [phone] | | | | | [phone] | | | +--------+ + + + [...] + + + in this encounter Results XR Hand Left 3 [...]
--- OUTSIDE RECORDS SUMMARY | ~2018-01-01 | XMS | Encounter Summary ---
Demographics + + + | Address | [address] | | | [place] [address] | + + + | Home Phone | | + + + | Preferred Language | Unknown | + + + | Marital Status | | + + + | Moravian Affiliation | Unknown | + + + | Race | Unknown | + + + | Ethnic Group | Unknown | + + + Author + + + | Author | [facility] | | | and [place]za[place] | + + + | Organization | [facility] | | | and [place] | + + + | Address | Unknown | + + + | Phone | Unavailable | + + + Support + + + + + | Name | Relationship | Address | Phone | + + + + + | Mathieu Almanza | ECON | [address] | | | | | [place] [address] | | + + + + + | Brittanie Almanza | ECON | Unknown | | + + + + + Care Team Providers + +------+ + | Care Digital Sales Manager Name | Role | Phone | + +------+ + | Consuelo Lepe | PCP | | + +------+ + Encounter Details +--------+ + + + + | Date | Type | Department | Care Team | Description | +--------+ + + + + | 12/30/ | Hospital | [facility] | Consuelo Lepe | Generalized | | 2018 | Encounter | HOSPITAL XRAY 900 | CON[facility] Gomes [address] | abdominal pain | | | | [address] | [facility], [place] | | | | | [place], [place] | [address] | | | | | [address] | [phone] | | | | | [phone] | | | +--------+ + + + [...] + + + as of this encounter Medications at Time of Discharge [...] + + in this encounter Results XR Abd Supine and Upright w 1 Vw Chest (12/30/2017 1343) + + + | Impressions | Performed At | + + + | IMPRESSION: No acute finding identified. Dictated by: [facility] | | [place] | | | [...]
--- OUTSIDE RECORDS SUMMARY | ~2018-01-01 | XMS | Encounter Summary ---
Demographics + + + | Address | [address] | | | [place] [address] | + + + | Home Phone | | + + + | Preferred Language | Unknown | + + + | Marital Status | | + + + | Yazidi Affiliation | Unknown | + + + | Race | Unknown | + + + | Ethnic Group | Unknown | + + + Author + + + | Author | [facility] | | | and [place]za[place] | + + + | Organization | [facility] | | | and [place]za[place] | + + + | Address | Unknown | + + + | Phone | Unavailable | + + + Support + + + + + | Name | Relationship | Address | Phone | + + + + + | Mathieu Almanza | ECON | [address] | | | | | [place] [address] | | + + + + + | Brittanie Almanza | ECON | Unknown | | + + + + + Care Team Providers + +------+ + | Care Maltster Name | Role | Phone | + +------+ + | Consuelo Lepe | PCP | | + +------+ + Encounter Details +--------+ + + + + | Date | Type | Department | Care Team | Description | +--------+ + + + + | 12/30/ | Hospital | [facility] | Consuelo Lepe | Generalized | | 2018 | Encounter | HOSPITAL XRAY 900 | [address] [address]omes [address] | abdominal pain | | | | [address] | [facility], [place] | | | | | [place], [place] | [address] | | | | | [address] | [phone] | | | | | [phone] | | | +--------+ + + + [...]
--- OUTSIDE RECORDS SUMMARY | ~2018-01-01 | XMS | Clinical Summary ---
Demographics + + + | Address | [address] | | | [place] [address] | + + + | Home Phone | | + + + | Preferred Language | Unknown | + + + | Marital Status | | + + + | Alevism Affiliation | Unknown | + + + | Race | Unknown | + + + | Ethnic Group | Unknown | + + + Author + + + | Author | [facility] | | | and [place]za[place] | + + + | Organization | [facility] | | | and [place] | + + + | Address | Unknown | + + + | Phone | Unavailable | + + + Support + + + + + | Name | Relationship | Address | Phone | + + + + + | Mathieu Almanza | ECON | [address] | | | | | [place] [address] | | + + + + + | Brittanie Almanza | ECON | Unknown | | + + + + + Care Team Providers + +------+ + | Care Decorative Engraver Apprentice Name | Role | Phone | + [...] pain | | 2018 | | | BOOKKEEPING TEACHER | (Primary Dx) | +--------+ + + + + | 10/22/ | Hospital | | Cnosuelo Lepe | Bilateral carpal | | 2018 [...] + + | [facility] | [address] | [place] [address] | [phone] | | HOSPITAL LAB[facility]ATORY | | | [...] + + | [facility] | [address] | [place] [address] | [phone] | | HOSPITAL LAB[facility]ATORY | | | [...] + + | [facility] | [address] | [place] [address] | [phone] | | HOSPITAL LABORATORY | | | [...] >=60 mL/min/1.73m2 | [facility] | | [place] | FILTRATION | | HOSPITAL | | | RATE,ESTIMATED mL/min | | LABORATORY | | | /1.59v8Paak than 60 | | | | | [...] + + | [facility] | [address] | [place] [address] | [phone] | | HOSPITAL LABORATORY | | | [...] + + + + + | Specific [place] | 1.010 | 1.003 - 1.030 | [...] + + | [facility] | [address] | [place] [address] | [phone] | | HOSPITAL LABORATORY | | | [...] + + | MODA | MODA | [id number] | PPO | [phone] [address] [address] | | | [place] | | | [phone] | [place] [address] | | | TY PPO | | [...] | 1965 | [phone] | [place] [address] | | | jing | | [phone] | | + +--------+ +--------+ + +
--- OUTSIDE RECORDS SUMMARY | ~2018-01-01 | XMS | Encounter Summary ---
Demographics + + + | Address | [address] | | | [place] [address] | + + + | Home Phone | | + + + | Preferred Language | Unknown | + + + | Marital Status | | + + + | Tenriism Affiliation | Unknown | + + + | Race | Unknown | + + + | Ethnic Group | Unknown | + + + Author + + + | Author | [facility] | | | and Rezaana | + + + | Organization | [facility] | | | and Rezaana | + + + | Address | Unknown | + + + | Phone | Unavailable | + + + Support + + + + + | Name | Relationship | Address | Phone | + + + + + | Mathieu Almanza | ECON | [address] | | | | | [place] [address] | | + + + + + | Brittanie Almanza | ECON | Unknown | | + + + + + Care Team Providers + +------+ + | Care Hub Associate Name | Role | Phone | + [...] + | 12/26/ | Emergency | [facility] | Zahira Bland, | Generalized pain | | 2018 | | HOSPITAL EMERGENCY | RUBBER WASHER [address] | (Primary Dx) | | | | [address] | [place] | | | | | [place] | [address] | | | | | [address] | | | | | | [phone] | | | +--------+ + + + [...] be sent through Care Everywhere.Pain Response,Understand ing (Vietnamese)in this encounter Medications at Time of Discharge [...] + + | [facility] | [address] | [place] [address] | [phone] | | HOSPITAL LABORATORY | | | [...] + + | [facility] | [address] | [place] [address] | [phone] | | HOSPITAL LABORATORY | | | [...] >=60 mL/min/1.73m2 | [facility] | | [place] | FILTRATION | | HOSPITAL | | | RATE,ESTIMATED mL/min | | LABORATORY | | | /1.18j2Rorf than 60 | | | | | [...] + + | [facility] | [address] | [place] [address] | [phone] | | HOSPITAL LABORATORY | | | [...] + + | [facility] | [address] | [place] [address] | [phone] | | HOSPITAL LABORATORY | | | [...] + + + + + | Specific [place] | 1.010 | 1.003 - 1.030 | [...] + + | [facility] | [address] | [place] [address] | [phone] | | HOSPITAL LABORATORY | | | [...]
--- OUTSIDE RECORDS SUMMARY | ~2018-01-01 | XMS | Encounter Summary ---
Demographics + + + | Address | [address] | | | [place] [address] | + + + | Home Phone | | + + + | Preferred Language | Unknown | + + + | Marital Status | | + + + | Yazidism Affiliation | Unknown | + + + | Race | Unknown | + + + | Ethnic Group | Unknown | + + + Author + + + | Author | [facility] | | | and Rezaana | + + + | Organization | [facility] | | | and [...] | | | | | [place] [address] | | + + + + + | Brittanie Almanza | ECON | Unknown | | + + + + + Care Team Providers + +------+ + | Care Theatrical Rigger Name | Role | Phone | + [...] | | | [place] | [address] | | | | | | Contrast | Phone: | | | | | | | [phone] | | | | | | | Fax: | | | | | | | [phone] | | +--------+--------+ + + + + [...] | | | | | location | [place], | | | | | | Procedures | [place] | | | | | | [place] | [address] | | | | | | Contrast | Phone: | | | | | | | [phone] | | | | | | | Fax: | | | | | | | [phone] | | +--------+--------+ + + + + [...] | | | | location | [place], | | | | | | Procedures | [place] | | | | | | [place] | [address] | | | | | | Contrast | Phone: | | | | | | | [phone] | | | | | | | Fax: | | | | | | | [phone] | | +--------+--------+ + + + + Encounter Details +--------+ + + + + | Date | Type | Department | Care Team | Description | +--------+ + + + + | 10/22/ | Hospital | [facility] | Consuelo Lepe | Chronic sinusitis, | | 2017 | Encounter | [facility] [address] | [address] | unspecified location | | | | [address] | [place], [place] | | | | | [place], [place] | [address] | | | | | [address] | [phone] | | | | | [phone] | | | +--------+ + + + [...]
--- OUTSIDE RECORDS SUMMARY | ~2018-01-01 | XMS | Encounter Summary ---
Demographics + + + | Address | [address] | | | [place] [address] | + + + | Home Phone | | + + + | Preferred Language | Unknown | + + + | Marital Status | | + + + | Orthodox Affiliation | Unknown | + + + | Race | Unknown | + + + | Ethnic Group | Unknown | + + + Author + + + | Author | [facility] | | | and Rezaana | + + + | Organization | [facility] | | | and [place]za[place] | + + + | Address | Unknown | + + + | Phone | Unavailable | + + + Support + + + + + | Name | Relationship | Address | Phone | + + + + + | Mathieu Almanza | ECON | [address] | | | | | [place] [address] | | + + + + + | Brittanie Almanza | ECON | Unknown | | + + + + + Care Team Providers + +------+ + | Care Backup Administrative Coordinator Name | Role | Phone | + +------+ + | Consuelo Lepe | PCP | | + +------+ + Encounter Details +--------+ + + + + | Date | Type | Department | Care Team | Description | +--------+ + + + + | 12/30/ | Ancillary | [facility] | Consuelo Lepe | Generalized | | 2018 | Orders | [facility] XRAY 900 | [address] | abdominal pain | | | | [address] | [facility], [place] | | | | | [place] | [address] | | | | | [address] | [phone] | | | | | [phone] | | | +--------+ + + + [...] and Upright w 1 Vw Chest (12/30/2017 1363) + + + | Impressions | Performed [...]
--- OUTSIDE RECORDS SUMMARY | ~2018-01-01 | XMS | Encounter Summary ---
Demographics + + + | Address | [address] | | | [place] [address] | + + + | Home Phone | | + + + | Preferred Language | Unknown | + + + | Marital Status | | + + + | Mormonism Affiliation | Unknown | + + + | Race | Unknown | + + + | Ethnic Group | Unknown | + + + Author + + + | Author | [facility] | | | and [place] | + + + | Organization | [facility] | | | and [place] | + + + | Address | Unknown | + + + | Phone | Unavailable | + + + Support + + + + + | Name | Relationship | Address | Phone | + + + + + | Mathieu Alamnza | ECON | [address] | | | | | [place] [address] | | + + + + + | Brittanie Almanza | ECON | Unknown | | + + + + + Care Team Providers + +------+ + | Care Product Safety Test Engineer Name | Role | Phone | + [...] | | | [address] | [facility], [place] | | | | | [place], [place] | [address] | | | | | [address] | [phone] | | | | | [phone] | | | +--------+ + + + [...]
--- NOTE | 2018-01-02 15:37 | EKG ---
[facility] [address] [facility] [place], [place] [address] Signed Normal sinus rhythm with sinus arrhythmia Normal ECG No previous ECGs available Confirmed by DAVINA DIAZ MD ([id number]) on 01/02/2018 3:36:44 PM Electronically Signed By: DAVINA DIAZ MD 01/02/18 1537 PATIENT NAME: ROBERT COLÓN Electrocardiogram DATE OF : 61 PHYSICIAN: DAVINA DIAZ MD REPORT #: [id number] REPORT IS CONFIDENTIAL AND NOT TO BE RELEASED WITHOUT AUTHORIZATION
== END 2018-01-01 21:46 | disposition home or self-care (01) ==
LOC: ED 18:41
DX: K29.00 Acute gastritis without bleeding (principal); Z88.5 Allergy status to narcotic agent
CPT/HCPCS: 71045; 76705; 80053; 81001; 83690; 84484; 85025; 85379; 93005; 93010; 96361; 96374; 96375; 99284; J2405; J7030